=== PATIENT | female | born 1945 | race Caucasian/White ===

== ENCOUNTER → 2018-07-04 | Outpatient (CLI) | payer MEDICARE, OTHER | END | disposition home or self-care (01) | LOC: PCVCIMAG 12:38 | PROVIDERS: ATTEND Internal Medicine Cardiovascular Disease | DX: I65.23 Occlusion and stenosis of bilateral carotid arteries (principal); R09.89 Other specified symptoms and signs involving the circulatory and respiratory systems; E78.5 Hyperlipidemia, unspecified; R00.2 Palpitations; R07.9 Chest pain, unspecified; I10 Essential (primary) hypertension; E11.9 Type 2 diabetes mellitus without complications | CPT/HCPCS: 36415; 80061; 93005; 93880; G0463 ==

== ENCOUNTER → 2018-07-10 | Outpatient (CLI) | payer MEDICARE, OTHER ==
--- NOTE | 2018-07-10 15:25 | PCVCIMAG ---
APPROVED REPORT Study performed: 07/10/2018 14:11:49 Exam: Stress Echocardiogram Indication: Hyperlipidemia, Hypertension, palpitations Patient Location: Echo lab Stress Nurse: Virginie Avelar RN Status: routine Ht: 5 ft 3 in HR: 75 bpm BP: 130/80 mmHg Rhythm: NSR Medical History Medical History: HTN, Hyperlipidemia, Diabetes Procedure The patient underwent an Exercise Stress Test using the Shabbir Protocol. Blood pressure, heart rate, and EKG were monitored. An Echocardiogram was performed by electronics engineering technician in four stages in quad fashion. At peak stress, four selected images were obtained and placed side by side with resting images for comparison. Stress Test Details Stress Test: Exercise stress testing was performed using a Shabbir protocol. HR Resting HR: 75 bpmMax Heart Rate (APMHR): 145 bpm Max HR Achieved: 99 bpmTarget HR (85% APMHR): 123 bpm % of APMHR: 68 Recovery HR: 91 bpm HR response to stress: Normal HR response to stress BP Resting BP: 130/80 mmHg Max BP: 170/80 mmHg Recovery BP: 156/76 mmHg BP response to stress: Normal blood pressure response to stress. ECG Resting ECG: Sinus Rhythm Stress ECG: Sinus Rhythm Recovery ECG: Sinus Rhythm Clinical Reason for Termination: Dyspnea Exercise duration: 5 min 58 sec Highest Stage Achieved: Stage 2: 2.5 mph at 12% grade. Exercise capacity: 7.00 METs Overall Exercise Capacity for Age: Normal Pre-Stress Echo The resting Echocardiogram showed normal left ventricular contractility with an estimated Ejection Fraction of about 55-60%. Normal wall motion in all segments on baseline images. Post-Stress Echo The stress Echocardiogram showed normal left ventricular contractility with an estimated Ejection Fraction of about 60-65%. Normal augmentation of wall motion in all segments on post stress images. Clinical No clinical or ECG evidence for ischemia. Conclusion Clinical Response: Non-ischemic Exercise Capacity: Below Average Stress ECG Response: Non-ischemic Stress Echo Images: Non-ischemic The left ventricle is normal in size and wall thickness in both the rest and stress images. Non-diagnostic study due to inability of the patient to achieve 85% of maximal HR. Other Information Study Quality: Adequate <Conclusion> The left ventricle is normal in size and wall thickness in both the rest and stress images. Non-diagnostic study due to inability of the patient to achieve 85% of maximal HR.
== END | disposition home or self-care (01) ==
LOC: PCVCIMAG 08:00
PROVIDERS: ATTEND Internal Medicine Cardiovascular Disease
DX: I10 Essential (primary) hypertension (principal); R00.2 Palpitations; E78.5 Hyperlipidemia, unspecified; E11.9 Type 2 diabetes mellitus without complications; R07.9 Chest pain, unspecified
CPT/HCPCS: 93325; 93351

== ENCOUNTER → 2019-03-15 | Outpatient (CLI) | payer MEDICARE, OTHER ==
[~2019-03-15] MED LIST: REGADENOSON 0.4 MG/5 ML DISP.SYRIN. IV ONE
--- NOTE | 2019-03-19 13:02 | PCVCIMAG ---
APPROVED REPORT Imaging Protocol: Rest Tc-99m/Stress Tc-99m 1 day Study performed: 03/15/2019 13:41:31 Indication: Chest pain, Dizzy Patient Location: Out-Patient Stress Nurse: Rajwinder Velasquez RN, Virginie Avelar RN SC Tech:Shannan Otero [facility] Ht: 5 ft 3 in Wt: 176 lbs BSA: 1.83 m2 HR: 65 bpm BP: 134/68 mmHg BMI: 31.1 Rhythm: Sinus Rhythm with T wave abnormalities Medical History Medical History: Hyperlipidemia, HTN, CVD, Diabetes Medications: Lisinopril, Diltiazem, Simvastatin Allergies: Sulfa Cardiac Risk Factors: Age Pretest Chest Pain Characteristics: No chest pain Resting Data Rest SPECT myocardial perfusion imaging was performed in supine position 45 minutes following the intravenous injection of 9.7 mCi of Tc-99m Sestamibi. Time of rest injection: 1315 Date: 03/15/2019 Administration Route: IV Administration Site: Right AC Pharmacologic Stress Pharmacologic stress test was performed by injecting Regadenoson 0.4 mg IV push over 10-15 seconds immediately followed by the intravenous injection of 34.2 mCi of Tc-99m Sestamibi. Time of stress injection: 1430 Date: 03/15/2019 Administration Route: IV Administration Site: Right AC Gated Stress SPECT was performed 45 minutes after stress injection. The images were gated to evaluate regional wall motion and calculate left ventricular ejection fraction. Stress Test Details Stress Test: Pharmacologic stress testing performed using 0.4 mg of regadenoson per 5 mL given IV over 10 seconds. Reason for pharmacologic stress test: physical limitation, sciatic pain. HRMax Heart Rate (APMHR): 144 bpm Resting HR: 65 bpmTarget HR (85% APMHR): 122 bpm Max HR Achieved: 80 bpm % of APMHR: 55 Recovery HR: 81 bpm BP Resting BP: 134/68 mmHg Max BP: 140/66 mmHg Recovery BP: 132/58 mmHg ECG Resting ECG: Sinus Rhythm with T wave abnormalities Stress ECG: Sinus Rhythm with T wave abnormalities Recovery ECG: Sinus Rhythm with T wave abnormalities Clinical Reason for Termination: Completed protocol Stress Symptoms: Lightheaded Symptoms resolved during recovery.Symptoms resolved with caffeine. Stress ECG Conclusion ECG: Non-ischemic Study Quality Study: Good Study Data Post stress, the left ventricular ejection was 48%.. SSS: 24 SRS: 20 SDS: 4 TID = 0.97. Perfusion No evidence of stress induced ischemia. 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 Nuclear Conclusion No evidence of stress induced ischemia. 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 Post stress, the left ventricular ejection was 48%. No prior study available for comparison. Interpreted by: Johnny Frazier MD Electronically Approved: 03/15/2019 17:47:36 <Conclusion> ECG: Non-ischemic
== END | disposition home or self-care (01) ==
LOC: PCVCIMAG 12:44
PROVIDERS: ATTEND Internal Medicine Cardiovascular Disease
DX: R00.2 Palpitations (principal); I10 Essential (primary) hypertension; E11.9 Type 2 diabetes mellitus without complications; E78.5 Hyperlipidemia, unspecified
CPT/HCPCS: 78452; 93017; A9500; J2785